=== PATIENT | female | born 1985 | race Caucasian/White ===

== ENCOUNTER → 2016-06-08 | Outpatient (CLI) | payer OTHER ==
[~2016-06-08] MED LIST: IRON SUPPLEMENT1 TAB PO; KETOPROFEN PO; ZITHROMAX PO
--- NOTE | ~2016-06-08 | MR17 ---
[facility] A Service of [facility] RADIOLOGY TEXT RESULTS PATIENT: MYRIAM OSULLIVAN LOCATION: [facility] : [birth year] UNIT #: [id number] AGE: [address]: ELEN TERRAZAS MD SEX: F ORDER DR: [id number] [place] [id number] O MR#: [id number] #: [id number] NAME: MYRIAM OSULLIVAN : 1985 SEX: F STUDY DATE/TIME: 06/08/2016 8:45 UNIT: [facility] ROOM: STUDY DESCRIPTION: MR Brain WWo Contrast Attending Physician: Elen Terrazas M.D. Referring Physician: Elen Terrazas M.D. Ordering Physician: Elen Terrazas M.D. Primary Care Physician: No Primary Care Physician MRI CENTER REPORT This report is preliminary unless electronic signature is present. EXAM Brain MRI with and without pituitary protocol HISTORY Migraine. No known injury or surgery. 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 Patient also complains of increasing dizziness and headaches since March 2016. No history of cancer. Patient has hypertension. COMMENT MRI of the brain was performed prior to and following intravenous administration 20 mL MultiHance. This includes pre- and postcontrast imaging of the brain as well as pre- and postcontrast high-resolution imaging of the sella. There is a comparison study from 03/03/2015. 1.5T wide-bore imaging technique utilized. FINDINGS There is a normal-appearing posterior pituitary bright spot. There is mild fullness of the gland but this is within the range of normal. No focal lesion is appreciated within the pituitary gland. Specifically, I do not see evidence for a cyst at this time. There is no mass effect upon adjacent structures. Assessment of whole brain imaging shows no evidence for a recent ischemic insult on the diffusion series. There is minimal nonspecific subcortical white matter signal abnormality in the frontal lobes. Otherwise, the ly-white junction is well-maintained. The ventricles are normal in size and configuration. The major intracranial flow voids are maintained. There is no extraaxial fluid collection. The basilar cisterns are patent. The mastoid air cells are clear. There is mucosal thickening in the left frontal sinus and partial opacification of left anterior ethmoid air cells but no sinus air-fluid level. Postcontrast imaging of the whole brain shows no pathologic intracranial enhancement. No intracranial mass lesion [facility]. [facility] A Service of [facility] RADIOLOGY TEXT RESULTS PATIENT: MYRIAM OSULLIVAN LOCATION: [facility] : [birth year] UNIT #: [id number] AGE: [address]: ELEN TERRAZAS MD SEX: F ORDER DR: or mass effect. IMPRESSION 1. Normal MRI of the pituitary gland. Specifically, no pituitary cyst is seen. 2. Minimal subcortical white matter signal abnormality probably not changed from 2014 allowing for motion on that study. I suspect this is related to the patient's history of hypertension. 3. Otherwise, essentially normal MRI of the brain with and without contrast. Dictated by... Narda Platt M.D. THIS IS AN ELECTRONICALLY VERIFIED REPORT Narda Platt M.D. at 06/09/2016 11:26 AM CALE/andrea TD: 06/09/2016 10:25 JOB #: [id number] MRI CENTER REPORT Page 1 of 1
== END | disposition home or self-care (01) ==
LOC: SMRI 08:01
DX: G43.719 Chronic migraine without aura, intractable, without status migrainosus (principal); E23.6 Other disorders of pituitary gland; R42 Dizziness and giddiness; R90.82 White matter disease, unspecified; I10 Essential (primary) hypertension
CPT/HCPCS: 70553; A9581